=== PATIENT | female | born 1960 ===

== ENCOUNTER → 2018-06-04 20:46 | Outpatient (REF) | payer BC, SELFPAY ==
[2018-06-04 20:49] LABS: RBC Urine None Seen (0-5/HPF)
[2018-06-04 21:25] LABS: Appearance Urine UA CLEAR; Bilirubin Urine UA NEGATIVE (NEGATIVE); Color Urine UA YELLOW; Glucose Urine UA NEGATIVE (Negative); Ketones Urine UA NEGATIVE (NEGATIVE); Leukocyte Esterase Urine UA 1+ (NEGATIVE); Nitrite Urine UA NEGATIVE (Negative); Occult Blood Urine UA NEGATIVE (Negative); Protein Urine UA NEGATIVE (Negative); Urobilinogen Urine UA 0.2 E.U./dL (0.2)
[2018-06-04 21:37] LABS: Add Manual Diff / Slide Review NO; Basophils Absolute Auto 0 /uL (0-100); Basophils Percent Auto 0.6 % (0-2); Eosinophils Absolute Auto 100 /uL (0-450); Eosinophils Percent Auto 2.9 % (2-4); Hematocrit 42.3 % (36-46); Lymphocytes Absolute Auto 1200 /uL (1100-4500); Lymphocytes Percent Auto 27.4 % (25-40); Mean Corpuscular HGB Conc 33.1 % (30-36); Mean Corpuscular Hemoglobin 32.1 PG (26-34); Monocytes Absolute Auto 300 /uL (0-900); Monocytes Percent Auto 7.8 % (3-14); Neutrophils Absolute Auto 2700 /uL (1500-7000); Neutrophils Percent Auto 61.3 % (50-75); Platelet Count 234 X10^3/uL (150-400); Red Blood Cell Count 4.36 X10^6/uL (4.0-5.2); White Blood Cell Count 4.3 X10^3/uL (4.5-11.0)
[2018-06-04 21:39] LABS: Squamous Epithelial Cell Urine 0-1 /HPF
[2018-06-04 21:40] LABS: Bacteria Urine Few (2-10); Culture Indicated Urine Specimen Cultured; WBC Urine 0-1/HPF (0-5/HPF)
[2018-06-04 21:57] LABS: Vitamin D 25 Hydroxy (D3) 27.4 ng/mL (30.0-100.0)
[2018-06-04 22:15] LABS: Free T3, Triiodothyronine Free 3.67 pg/mL (2.77-5.27); T4 Total Thyroxine 4.95 ug/dL (5.5-11.0)
[2018-06-04 22:29] LABS: Thyroid Stimulating Hormone 2.04 uIU/mL (0.47-4.68)
[2018-06-04 23:04] LABS: Alanine Aminotransferase 26 IU/L (9-52); Albumin 4.6 g/dL (3.5-5.0); Albumin Globulin Ratio 1.6 (1.0-2.8); Alkaline Phosphatase 94 U/L (38-126); Aspartate Aminotransferase 31 IU/L (14-36); BUN Creatinine Ratio 16.7 (6-22); Bilirubin Total 0.5 mg/dL (0.2-1.3); Blood Urea Nitrogen 15 mg/dL (7-17); Calcium 9.6 mg/dL (8.4-10.2); Carbon Dioxide 29 mmol/L (22-32); Chloride 102 mmol/L (98-107); Cholesterol 191 mg/dL (140-199); Estimated Glomerular Filt Rate > 60.0 mL/min (>60); Globulin 2.9 g/dL (1.7-4.1); Glucose 86 mg/dL (70-100); Potassium 4.3 mmol/L (3.4-5.1); Sodium 141 mmol/L (137-145); Total Protein 7.5 g/dL (6.3-8.2); Triglycerides 52 mg/dL (35-150)
[2018-06-04 23:05] LABS: HEMOLYSIS < 15 (0-50)
[2018-06-04 23:12] LABS: HDL Cholesterol 130 mg/dL (40-60); LDL Cholesterol Calculated 51 mg/dL (<100)
[2018-06-05 00:13] LABS: Cortisol Random 11.8 ug/dL
[2018-06-05 00:31] LABS: Vitamin B12 596 pg/mL (239-931)
== END ==
LOC: LAB 20:46
PROVIDERS: Visit Provider Naturopath
DX: E03.9 Hypothyroidism, unspecified (principal); R11.2 Nausea with vomiting, unspecified; K30 Functional dyspepsia; G47.9 Sleep disorder, unspecified; E55.9 Vitamin D deficiency, unspecified
CPT/HCPCS: 36415; 80053; 80061; 81001; 82306; 82533; 82607; 84436; 84443; 84481; 85025; 87086